=== PATIENT | female | born 1940 | race Caucasian/White ===

== ENCOUNTER 2016-11-14 08:27 | Day surgery (SDC) | payer MEDICARE, OTHER ==
[~2016-11-14] VITALS: Ht 165.1 cm; Wt 77.5 kg
[2016-11-14] VITALS (20 sets, daily range): BP systolic 123–165; BP diastolic 57–74; PULSE 66–89; RESP 15–20; Ht 165.1 cm; Wt 77.5 kg
[~2016-11-14 08:27] MED LIST: ASPI-664 PO; DESFLURANE 15 MIN ONE; ERGO500014 PO; FER325 PO; IBUP-1542 PO; ISOSULFAN BLUE 1% 5 ML INJ SC ONE; MECL25TA2 PO; METF500T4 PO; OFLO5DRO3 BOTH EYES; OFLO5DRO46 BOTH EYES; VALS1TAB76 PO; ZOF8 PO
[2016-11-14] MEDS ORDERED: SOD CHLORIDE 0.9% 1,000 ML IV ONE (10:00)
[2016-11-14] MEDS ORDERED: CEFAZOLIN 2 GM/50 ML (PMX) 50 ML IVPB ONE (10:00)
[2016-11-14] MEDS ORDERED: DEXL60CA2 PO (11:36)
[2016-11-14] MEDS ORDERED: IBUP-1542 PO (11:38)
[2016-11-14] MEDS ORDERED: MECL-77 PO (11:39)
[2016-11-14] MEDS ORDERED: MELO-109 PO (11:40)
[2016-11-14] MEDS ORDERED: CRES10 PO (11:41)
[2016-11-14] MEDS ORDERED: ROPI1TAB PO (11:41)
[2016-11-14] MEDS ORDERED: FESO4TAB PO (11:42)
[2016-11-14] MEDS ORDERED: ERGO500037 PO (11:44)
[2016-11-14] MEDS ORDERED: DICL100G37 TOP (11:45)
--- NOTE | 2016-11-14 11:59 | RADRPT ---
PROCEDURE: XR Chest. CLINICAL INDICATION: Shortness of breath TECHNIQUE: Single frontal view of the chest was obtained COMPARISON: None FINDINGS: The heart and mediastinum are within normal limits. There are mild left lower lobe linear atelectatic changes. There is mild elevation of the right diaphragm. There is no pleural effusion or pneumothorax. RPTAT: AA IMPRESSION: Mild left lower lobe linear atelectatic changes. Mild elevation of the right diaphragm. .Juan Avendano MD, MD Date Time Electronically viewed and signed by .Juan Avendano MD, MD on 11/14/2016 11:59 .S/
[2016-11-14 12:07] LABS: BASOPHILS % 0.6 % (0.0-2.0); EOSINOPHILS # 0.1 10^3/ul (0.0-0.5); EOSINOPHILS % 1.5 % (0.0-7.0); HEMATOCRIT 38.3 % (37.0-47.0); HEMOGLOBIN 12.6 g/dl (12.0-16.0); LYMPHOCYTES # 2.1 10^3/ul (0.8-2.9); LYMPHOCYTES % 32.1 % (15.0-51.0); MEAN CORPUSCULAR HEMOGLOBIN 30.2 pg (29.0-33.0); MEAN CORPUSCULAR HGB CONC 32.9 g/dl (32.0-37.0); MEAN CORPUSCULAR VOLUME 91.8 fl (82.0-101.0); MEAN PLATELET VOLUME 10.9 fl (7.4-10.4); MONOCYTE # 0.5 10^3/ul (0.3-0.9); NEUTROPHIL # 3.8 10^3/ul (1.6-7.5); NEUTROPHILS % 57.3 % (39.0-77.0); PLATELET COUNT 245 10^3/UL (140-415); RED BLOOD COUNT 4.17 10^6/ul (4.20-5.40); WHITE BLOOD COUNT 6.6 10^3/ul (4.8-10.8)
[2016-11-14 12:22] LABS: INR 0.83; PROTIME 11.4 Sec (12.2-14.2); PT RATIO 0.9
[2016-11-14 12:23] LABS: PARTIAL THROMBOPLASTIN TIME 25.7 Sec (25.0-35.0)
[2016-11-14 12:34] LABS: ALBUMIN 4.3 g/dl (3.3-4.9); ALBUMIN/GLOBULIN RATIO 1.26; BILIRUBIN,INDIRECT 0.4 mg/dl (0-1.1); BILIRUBIN,TOTAL 0.4 mg/dl (0.2-1.3); TOTAL PROTEIN 7.7 g/dl (6.1-8.1)
[2016-11-14] MEDS ORDERED: PROPOFOL 20 ML ONE (12:35)
[2016-11-14] MEDS ORDERED: FENTAnyl 50 MCG/ML VIAL ONE (12:35)
[2016-11-14] MEDS ORDERED: METOCLOPRAMIDE 10 MG INJ ONE (12:35)
[2016-11-14] MEDS ORDERED: CEFAZOLIN 1 GM INJ ONE (12:35)
[2016-11-14] MEDS ORDERED: MIDAZOLAM 1 MG/ML 2 ML INJ ONE (12:35)
[2016-11-14 12:42] LABS: CALCIUM 9.4 mg/dl (8.4-10.2); CREATININE 0.82 mg/dl (0.44-1.00); POTASSIUM 3.4 mmol/L (3.5-5.1)
[2016-11-14] MEDS ORDERED: ISOSULFAN BLUE 1% 5 ML INJ SC ONE (12:57)
[2016-11-14] MEDS ORDERED: EPHEDrine SULFATE 50 MG/5 ML SYG ONE (13:13)
[2016-11-14] MEDS ORDERED: ONDANSETRON 4 MG INJ ONE (13:51)
--- NOTE | 2016-11-14 14:25 | OPR ---
Date/Time of Note Date/Time of Note DATE: 11/14/16 TIME: 14:21 Operative Report Preoperative Diagnosis Invasive cancer left breast Postoperative Diagnosis Same Operation/Procedure Performed Needle directed left partial mastectomy with axillary dissection utilizing sentinel lymph node technique Surgeon: CHIKA BLACK MD library clerical assistant: KIM FARLEY MD Anesthesia Type: general Estimated Blood Loss: 10 - 50 ml's Transfusion Required: no Grafts/Implants: none Complications: no CHIKA BLACK MD Nov 14, 2016 14:24
[2016-11-14] MEDS ORDERED: OXYCODONE/ACETAMINOPHEN (5/325) TAB PO PRN ×2 (14:30)
[2016-11-14] MEDS ORDERED: METOCLOPRAMIDE 10 MG INJ IV PRN (14:30)
[2016-11-14] MEDS ORDERED: DIPHENHYDRAMINE 50 MG INJ IV PRN (14:30)
[2016-11-14] MEDS ORDERED: MEPERIDINE 25 MG INJ IV PRN (14:30)
[2016-11-14] MEDS ORDERED: ONDANSETRON 4 MG INJ IV PRN (14:30)
[2016-11-14] MEDS ORDERED: HYDROmorphONE (0.2 MG/ML) 10ML SYG IV PRN ×3 (14:30)
[2016-11-14] MEDS ORDERED: morphine 2 MG INJ IV PRN (14:30)
[2016-11-14] MEDS ORDERED: ACETAMINOPHEN 1000MG/100ML IV 100 ML IVPB PRN (14:30)
--- NOTE | 2016-11-14 14:39 | RADRPT ---
Vent Rate: 71 bpm RR Interval: 0 msec MA Interval: 182 msec QRS Duration: 84 msec QT Interval: 410 msec QTC Interval: 445 msec P-R-T Okay: 51 - 29 - 40 degrees Normal sinus rhythm Normal ECG Electronically Signed By: Elodn Miller [id number]
--- NOTE | 2016-11-14 14:55 | OPR ---
DATE OF OPERATION: 11/14/2016 PREOPERATIVE DIAGNOSIS: Invasive cancer, left breast. POSTOPERATIVE DIAGNOSIS: Invasive cancer, left breast. OPERATION PERFORMED: Left needle-directed partial mastectomy and sentinel lymph node and axillary dissection utilizing sentinel lymph node technique. ANESTHESIA: General. ANESTHESIOLOGIST: Dr. Berman. SURGEON: Dr. Briones FINANCIAL SALES ADVISOR: Dr. Ulysses Azevedo. INDICATIONS FOR PROCEDURE: Patient is a 76-year-old female, who underwent screening mammography. She was found to have a suspicious lesion at approximately the 3 o'clock location. There was a lesion that was approximately 1 cm in diameter and a satellite lesion that was approximately 5 mm in diameter. Biopsy confirmed invasive carcinoma. The patient was counseled of the need for surgery. She opted to undergo breast conservation surgery with needle-directed partial mastectomy and sentinel lymph node biopsy. She consented and was scheduled for surgery. DESCRIPTION OF PROCEDURE:: On the morning of surgery, patient presented to [facility] where she underwent localization of the lesion performed by attending radiologist, Dr. Regino Cevallos. Subsequently, she was brought to the operating theater, placed under general anesthesia. The left breast and axillary region was prepped and draped in usual sterile fashion. Approximately 4 mL of 1 percent Lymphazurin blue dye were then injected peritumor and the breast was gently massaged for approximately 12 minutes. At this point, a 3-4 cm incision was made in the left axillary hairline. Subcutaneous tissue was dissected with cautery down through the clavipectoral fascia. The fascia was incised. Dye-stained lymphatic was identified and traced to an obvious sentinel node. This node was resected using LigaSure device. It was sent for intraoperative analysis performed by attending pathologist Dr. Harmon. The pathologist reported it as negative for evidence of metastatic disease. Therefore, no further lymph nodes were taken. The wound was irrigated. Minimal bleeding was controlled with cautery and the skin was then reapproximated with a 4-0 Vicryl suture in subcuticular fashion. Attention was then directed to performing the partial mastectomy. A curvilinear incision was made in the region of the previously placed localization wire. Subcutaneous tissue was dissected with cautery. The skin edges were elevated with skin hooks and wide circumferential dissection of the tissue associated with the wire took place, taking great care to ensure adequate margin. Specimen was transected, oriented and sent for radiographic confirmation of capture. Capture was confirmed. The specimen was then sent for permanent pathologic analysis. The wound was then irrigated. Minimal bleeding was controlled with cautery. The skin was reapproximated with a 4-0 Vicryl suture in subcuticular fashion. Dermabond was then applied to both incisions. The patient tolerated the procedure well. ESTIMATED BLOOD LOSS: Was 20 cc. COMPLICATIONS: There were no complications and the patient was transferred in stable condition to recovery room, where a circumferential compression dressing was applied. Dictated By: Yoseph Briones MD /mary/jayme /Document#: [id number] DEISY
--- NOTE | 2016-11-14 16:05 | HP ---
Date/Time of Note Date/Time of Note DATE: 11/14/16 TIME: 15:55 Assessment/Plan VTE Prophylaxis VTE Prophylaxis Intervention: SCD's Lines/Catheters IV Catheter Type (from Nrsg): Saline Lock Assessment/Plan Assessment/Plan -Invasive cancer of the left breast, status post left partial mastectomy. Continue morphine as needed for pain and Zofran as needed for nausea. Follow- up surgical recommendations. -Diabetes mellitus type 2, continue metformin and NovoLog per mild algorithm sliding scale. Carb controlled diet. -Hypertension, patient is currently normotensive. -Hyperlipidemia, continue statin. Further recommendations based on clinical course. Plan of care discussed with Dr. Esteban. HPI/ROS Admit Date/Time Admit Date/Time Hx of Present Illness The patient is 76-year-old female with hypertension, diabetes, and hyperlipidemia. Patient was recently diagnosed with invasive cancer of the left breast. Patient was brought to the hospital and underwent partial mastectomy and sentinel lymph node biopsy by Dr. Briones. Postoperatively patient experiencing moderate pain. Patient will be admitted for further evaluation and management. ROS Constitutional: no complaints Eyes: no complaints ENT: no complaints Respiratory: no complaints Cardiovascular: no complaints Gastrointestinal: no complaints Genitourinary: no complaints Skin: other (Pale) Endocrine: no complaints Psychological: no complaints PMH/Family/Social Past Medical History Medical History: diabetes, high cholesterol, hypertension Past Surgical History Left knee arthroplasty for torn meniscus in 2014 Family History Significant Family History: no pertinent family hx Social History Alcohol Use: none Smoking Status: Never smoker Drug Use: none Exam/Review of Systems Vital Signs Vitals Vital Signs Date Time Temp Pulse Resp B/P Pulse Ox O2 Delivery O2 Flow Rate FiO2 11/14/16 15:03 74 16 133/61 98 Nasal Cannula 11/14/16 14:18 98.1 Intake and Output 11/13/16 11/13/16 11/14/16 15:00 23:00 07:00 Intake Total 1000 ml Output Total 10 ml Balance 990 ml Exam Constitutional: alert, oriented Psych: no complaints Head: normocephalic Eyes: nl conjunctiva Neck: supple Respiratory: normal air movement Cardiovascular: nl pulses Gastrointestinal: non-tender, soft Musculoskeletal: nl extremities to inspection Extremities: normal pulses Neurological: nl mental status Labs Result Diagram: 11/14/16 1131 11/14/16 1131 Medications Medications Current Medications Sodium Chloride (NS) 1,000 ml @ 75 mls/hr [id number] ONCE IV ; Start 11/14/16 at 10 :00; Stop 11/14/16 at 23:19 Ondansetron HCl 4 mg 4 mg Q6H PRN IV NAUSEA AND/OR VOMITING; Start 11/14/16 at 14:30 Potassium Chloride/Dextrose/ Sod Cl (D5-1/2ns + KCl 20 Meq) 1,000 ml @ 125 mls/ hr Q8H IV ; Start 11/14/16 at 14:25 Morphine Sulfate 2 mg 2 mg Q1H PRN IV PAIN; Start 11/14/16 at 14:30 Acetaminophen (Ofirmev 1000mg/ 100ml Iv) 100 ml @ 400 mls/hr Q6H PRN IVPB PAIN ; Start 11/14/16 at 14:30 CHAMP DEAL Nov 14, 2016 16:05
[2016-11-14] MEDS ORDERED: DEXTROSE 50% 50 ML SYRINGE IV PRN ×2 (16:30)
[2016-11-14] MEDS ORDERED: GLUCAGON 1 MG INJ IM PRN (16:30)
[2016-11-14] MEDS ORDERED: GLUCOSE GEL 15 GRAM TUBE PO PRN ×2 (16:30)
[2016-11-14] MEDS ORDERED: GLUCOSE GEL 15 GRAM TUBE BUCCAL PRN (16:30)
[2016-11-14] MEDS: metFORMIN 500 MG TAB PO SCH (17:56)
[2016-11-14] MEDS: INSULIN ASPART [NOVOLOG] 3 ML PEN SC SCH ×2 (18:02→20:56)
[2016-11-14] MEDS: ONDANSETRON 4 MG INJ IV PRN (19:34)
[2016-11-14] MEDS: D5W-0.45 NACL + KCL 20 MEQ 1,000 ML IV SCH ×2 (20:55→23:56)
[2016-11-14] MEDS ORDERED: ATORVASTATIN 40 MG TAB PO SCH (21:00)
[2016-11-15 00:04] VITALS: BP 123/58; PULSE 78; RESP 19
[2016-11-15] MEDS ORDERED: ACCU-CHEK XX SCH (02:00)
[2016-11-15 02:33] VITALS: BP 92/51; RESP 20
[2016-11-15] MEDS: ONDANSETRON 4 MG INJ IV PRN (04:49)
[2016-11-15 05:33] VITALS: BP 114/59; PULSE 75; RESP 19
[2016-11-15 05:33] LABS: BASOPHILS % 0.3 % (0.0-2.0); EOSINOPHILS # 0.1 10^3/ul (0.0-0.5); EOSINOPHILS % 0.9 % (0.0-7.0); HEMATOCRIT 32.1 % (37.0-47.0); HEMOGLOBIN 10.4 g/dl (12.0-16.0); LYMPHOCYTES # 1.8 10^3/ul (0.8-2.9); LYMPHOCYTES % 25.4 % (15.0-51.0); MEAN CORPUSCULAR HEMOGLOBIN 29.3 pg (29.0-33.0); MEAN CORPUSCULAR HGB CONC 32.4 g/dl (32.0-37.0); MEAN CORPUSCULAR VOLUME 90.4 fl (82.0-101.0); MEAN PLATELET VOLUME 10.9 fl (7.4-10.4); MONOCYTE # 0.8 10^3/ul (0.3-0.9); MONOCYTES % 11.3 % (0.0-11.0); NEUTROPHIL # 4.3 10^3/ul (1.6-7.5); NEUTROPHILS % 61.7 % (39.0-77.0); PLATELET COUNT 218 10^3/UL (140-415); RED BLOOD COUNT 3.55 10^6/ul (4.20-5.40); RED CELL DISTRIBUTION WIDTH 12.9 % (11.5-14.5)
[2016-11-15 06:15] LABS: CALCIUM 8.5 mg/dl (8.4-10.2); CREATININE 0.83 mg/dl (0.44-1.00); POTASSIUM 3.6 mmol/L (3.5-5.1)
[2016-11-15] MEDS: INSULIN ASPART [NOVOLOG] 3 ML PEN SC SCH (07:50)
[2016-11-15 08:10] VITALS: BP 113/58; RESP 20
[2016-11-15] MEDS: metFORMIN 500 MG TAB PO SCH (08:26)
[2016-11-15] MEDS: D5W-0.45 NACL + KCL 20 MEQ 1,000 ML IV SCH (09:56)
--- NOTE | 2016-11-15 15:03 | DS ---
Date/Time of Note Date/Time of Note DATE: 11/15/16 TIME: 15:01 Discharge Summary Admission/Discharge Info Admit Date/Time Discharge Date/Time Patient Condition: Good Hx of Present Illness The patient is 76-year-old female with hypertension, diabetes, and hyperlipidemia. Patient was recently diagnosed with invasive cancer of the left breast. Patient was brought to the hospital and underwent partial mastectomy and sentinel lymph node biopsy by Dr. Briones. Postoperatively patient experiencing moderate pain. Patient will be admitted for further evaluation and management. Hospital Course -Invasive cancer of the left breast, status post left partial mastectomy. Continue morphine as needed for pain and Zofran as needed for nausea. Follow- up surgical recommendations. -Diabetes mellitus type 2, continue metformin and NovoLog per mild algorithm sliding scale. Carb controlled diet. -Hypertension, patient is currently normotensive. -Hyperlipidemia, continue statin. Home Meds Reported Medications Diclofenac Sodium* (Voltaren* Gel) 1% -100 Gm Gel, 2 GM TOP QID, #1 TUB 11/14/16 Ergocalciferol (Vitamin D2) (VITAMIN D2) 50,000 Unit Capsule, 24409 UNIT PO WEEKLY, CAP 11/14/16 Fesoterodine Fumarate (Toviaz) 4 Mg Tab.sr.24h, 4 MG PO DAILY, TAB 11/14/16 Fesoterodine Fumarate (Toviaz) 4 Mg Tab.sr.24h, 4 MG PO DAILY, TAB 11/14/16 Rosuvastatin Calcium* (Crestor*) 10 Mg Tablet, 10 MG PO QHS, #30 TAB 11/14/16 Ropinirole Hcl* (Ropinirole Hcl*) 1 Mg Tablet, 1 MG PO HS, TAB 11/14/16 Meloxicam* (Meloxicam*) 7.5 Mg Tablet, 7.5 MG PO DAILY, #30 TAB 11/14/16 Meclizine Hcl* (Meclizine Hcl*) 25 Mg Tablet, 25 MG PO Q8H Y for DIZZINESS, TAB 11/14/16 Ibuprofen* (Ibuprofen*) 600 Mg Tablet, 600 MG PO Q8 Y for PAIN, TAB 11/14/16 Dexlansoprazole (Dexilant) 60 Mg Cap., 60 MG PO DAILY, #30 CAP 11/14/16 Valsartan-Hydrochlorothiazide (Valsartan-HCTZ) 160-12.5 Mg Tablet, 1 TAB PO DAILY, TAB 10/26/14 Metformin* (Glucophage*) 500 Mg Tab, 500 MG PO BID WITH MEALS, TAB 10/26/14 Ferrous Sulfate* (Ferrous Sulfate*) 325 Mg Tabec, 325 MG PO TID, TAB 10/26/14 Aspirin* (Aspirin* EC) 81 Mg Tablet.dr, 81 MG PO DAILY, TAB 10/26/14 Discontinued Reported Medications Ergocalciferol* (Drisdol* (Vitamin D2)) 50,000 Unit Capsule, 30772 UNIT PO Q7D, CAP 10/26/14 Ibuprofen* (Motrin*) 600 Mg Tab, 600 MG PO Q6H Y for PAIN, TAB 10/26/14 Ofloxacin* (Ofloxacin*) 0.3% - 10 Ml Ophth Drops, 1 DROP BOTH EYES QID, EA 10/26/14 Ofloxacin* (Ocuflox*) 0.3%-5 Ml Ophth Drops, 1 DROP BOTH EYES QID, BOTTLE 10/26/14 Discontinued Scripts Ondansetron Hcl* (Zofran* ODT) 8 mg -ODT Tab.disper, 8 MG PO Q6 Y for NAUSEA AND /OR VOMITING, #20 TAB Prov:YUKO MCKEON MD 10/26/14 Meclizine Hcl* (Antivert*) 25 Mg Tablet, 25 MG PO Q6H Y for NAUSEA, #20 TAB Prov:YUKO MCKEON MD 10/26/14 Follow-up Plan Follow-up with Dr. Briones in 5-7 days Primary Care Provider Hiram Fung ([facility]) Pending Labs Laboratory Tests Test 11/14/16 15:34 11/14/16 17:34 11/14/16 20:56 11/15/16 04:54 Bedside Glucose 120mg/dL (70-220) 179mg/dL (70-220) 174mg/dL (70-220) White Blood Count 7.010^3/ul (4.8-10.8) Red Blood Count 3.5510^6/ul (4.20-5.40) Hemoglobin 10.4g/dl (12.0-16.0) Hematocrit 32.1% (37.0-47.0) Mean Corpuscular Volume 90.4fl (82.0-101.0) Mean Corpuscular Hemoglobin 29.3pg (29.0-33.0) Mean Corpuscular Hemoglobin Concent 32.4g/dl (32.0-37.0) Red Cell Distribution Width 12.9% (11.5-14.5) Platelet Count 74771^3/UL (140-415) Mean Platelet Volume 10.9fl (7.4-10.4) Neutrophils % 61.7% (39.0-77.0) Lymphocytes % 25.4% (15.0-51.0) Monocytes % 11.3% (0.0-11.0) Eosinophils % 0.9% (0.0-7.0) Basophils % 0.3% (0.0-2.0) Nucleated Red Blood Cells % 0.0/100WBC (0.0-0.0) Neutrophils # 4.310^3/ul (1.6-7.5) Lymphocytes # 1.810^3/ul (0.8-2.9) Monocytes # 0.810^3/ul (0.3-0.9) Eosinophils # 0.110^3/ul (0.0-0.5) Basophils # 0.010^3/ul (0.0-0.1) Nucleated Red Blood Cells # 0.010^3/ul (0.0-0.0) Sodium Level 140mmol/L (135-144) Potassium Level 3.6mmol/L (3.5-5.1) Chloride Level 102mmol/L (97-110) Carbon Dioxide Level 28mmol/L (21-31) Anion Gap 14 (8-16) Blood Urea Nitrogen 17mg/dl (7-20) Creatinine 0.83mg/dl (0.44-1.00) Glucose Level 197mg/dl (70-220) Calcium Level 8.5mg/dl (8.4-10.2) Test 11/15/16 08:25 Bedside Glucose 128mg/dL (70-220) CHAMP DEAL Nov 15, 2016 15:03
== END 2016-11-15 12:30 | disposition home or self-care (01) ==
LOC: SDS 08:27 → MS1 15:00 → SDS 11-15 12:30
PROVIDERS: ATTEND Surgery Surgical Oncology
DX: C50.912 Malignant neoplasm of unspecified site of left female breast (principal); E11.9 Type 2 diabetes mellitus without complications; E78.5 Hyperlipidemia, unspecified; I10 Essential (primary) hypertension
CPT/HCPCS: 19301; 38500; 38792; 71010; 80048; 80053; 82962; 85025; 85610; 85730; 88307; 93005; J0131; J0690; J1815; J2250; J2405; J2765; J3010; J3480; Q9968